=== PATIENT | male | born 1955 | race Caucasian/White ===

== ENCOUNTER 2017-12-22 10:19 | Inpatient (IN) | payer OTHER ==
[~2017-12-22] VITALS: Ht 175.3 cm; Wt 68.0 kg
[2017-12-22 10:26] VITALS: BP 126/88
[2017-12-22] MEDS ORDERED: QUETIAPINE FUM100 MG PO ×2 (10:30→13:57)
[2017-12-22 10:38] LABS: ABSOLUTE MONOCYTES 1.4 thou/uL (0.0-1.2); ABSOLUTE NEUTROPHILS 8.2 thou/uL (1.6-8.1); BASOPHILS 0.3 %; HEMATOCRIT 48.7 % (42.0-52.0); HEMOGLOBIN 16.4 gm/dL (14.0-18.0); LYMPHOCYTES 16.9 %; MCH 26.9 pg (26.0-34.0); MCHC 33.6 g/dL (28.0-37.0); MCV 80.1 fL (80.0-100.0); MONOCYTES 12.2 %; MPV 7.3 fl. (7.2-11.1); NUCLEATED RBCS 0 /100WBC; PLATELET COUNT* 492 thou/uL (150-400); POLYS 70.6 %; RBC 6.08 mil/uL (4.50-6.00); RDW-CV 17.3 % (10.5-14.5); WBC 11.7 thou/uL (4.0-11.0)
[2017-12-22 10:48] LABS: CALCIUM 9.9 mg/dL (8.5-10.1); CREATININE 1.6 mg/dL (0.6-1.3)
[2017-12-22 10:59] LABS: TOTAL BILIRUBIN 0.9 mg/dL (<0.1-1.0); TOTAL PROTEIN 9.9 g/dL (6.4-8.2)
[2017-12-22 13:18] VITALS: BP 115/85
[2017-12-22 13:40] VITALS: BP 133/76
[2017-12-22] MEDS ORDERED: HYDROXYZINE PAM50 MG PO (13:58)
[2017-12-22] MEDS ORDERED: PRAZOSIN HCL5 MG PO (13:58)
[2017-12-22] MEDS ORDERED: SENNA-DOCUSATE1 EAC1 PO (14:03)
[2017-12-22] MEDS ORDERED: MIRATAZAPINE PO (14:04)
[2017-12-22 15:33] VITALS: BP 119/78
--- NOTE | 2017-12-22 17:31 | NUR ---
PATIENT ADMITTED TO ROOM 305 THIS AFTERNOON FROM ER. ALERT AND ORIENTED X 4. IVF INFUSING ORDERED. CLEAR LIQUID DIET, PATIENT TOLERATING. GI CONS PLACED AND HERE TO SEE THIS AFTERNOON. ORDERS FOR NPO AFTER MIDNIGHT FOR ABD US FIRST THEN EGD TO FOLLOW. PATIENT AWARE AND VERBALIZES UNDERSTANDING. PATIENT RATING ABD PAIN A 9/10, PRN FENTANYL GIVEN. PATIENT RATING PAIN A 4/10 30 MINUTES AFTER GIVEN. PATIENT THEN CALLING OUT AGAIN STATING HE WAS NEEDING PAIN MEDICATION. PATIENT MADE AWARE OF WHEN PAIN MEDICATIONS ARE DUE, PATIENT OBSERVED LYING CALMLEY IN BED AT THAT TIME. FALL RISK PROTOCOL IN PLACE. PATIENT BLADDER SCANNED THIS AFTERNOON AND 397MLS NOTED IN BLADDER. PATIENT THEN VOIDING 175MLS DARK CJ URINE IN URINAL. WILL CONTINUE TO MONITOR.
--- NOTE | 2017-12-22 17:44 | EKG ---
[place] [address] ELECTROCARDIOGRAM REPORT Name: CAITLYN JORDAN Room: [address] ADM IN M.R.#: [id number] Admission: 12/22/17 Attend Phys: Rajan Salinas MD Discharge: Date of : 55 Report #: [id number] THIS REPORT FOR: //name// [facility] Test Date: 2017-12-22 Test Time: 16:44:05 Pat Name: CAITLYN JORDAN Department: Room: [address] Gender: M Rhinestone Setter: [facility] : 1955 Requested By: Ernie Ramsay Order Number: [id number] Martina MD: Isreal Miner Measurements Intervals [place] Rate: 68 P: 68 [place]: 124 QRS: 77 QRSD: 98 T: 61 QT: 428 QTc: 456 Interpretive Statements Sinus rhythm Compared to ECG 01/25/2010 14:53:23 No significant changes Electronically Signed On 12-22-2017 17:44:41 BRAND MANAGER by Isreal Miner [email or web address] <ELECTRONICALLY SIGNED> By: Isreal Miner MD, [facility] 12/22/17 1744 43 43 Isreal Miner MD, FACC /EPI
--- NOTE | 2017-12-23 06:51 | NUR ---
PATIENT SLEPT MOST OF THE NIGHT. IV FLUIDS ARE INFUSING ORDERED. PATIENT WAS GIVEN PAIN MEDICINE ABOUT EVERY 4 HOURS. PATIENT IS NPO FOR AN EGD TODAY. WILL CONTINUE TO MONITOR.
[2017-12-23 08:21] VITALS: BP 108/73
--- NOTE | 2017-12-23 08:30 | NUR ---
INITIAL ASSESSMENT COMPLETED, VSS, ABD US COMPLETE, NO DISTRESS NOTED. CONSENT FOR SCOPE SIGNED, IV PATENT, COMPLIANT W/ CARES, PLAN OF CARE REVIEWED W/ PATIENT, DENIES QUESTIONS, CONT POC.
[2017-12-23 10:16] VITALS: BP 108/73
--- NOTE | 2017-12-23 10:48 | NUR ---
SW attempted to meet pt but he was off of the unit at this time. SW to continue to follow to assist with safe dc planning.
[2017-12-23 16:00] VITALS: BP 128/64
[2017-12-23 16:11] LABS: ABSOLUTE BASOPHILS 0.1 thou/uL (0.0-0.2); ABSOLUTE EOSINOPHILS 0.1 thou/uL (0.0-0.7); ABSOLUTE MONOCYTES 0.8 thou/uL (0.0-1.2); ABSOLUTE NEUTROPHILS 5.2 thou/uL (1.6-8.1); BASOPHILS 0.7 %; EOSINOPHILS 0.8 %; HEMATOCRIT 42.3 % (42.0-52.0); LYMPHOCYTES 24.9 %; MCH 27.1 pg (26.0-34.0); MCHC 32.6 g/dL (28.0-37.0); MCV 83.1 fL (80.0-100.0); MONOCYTES 10.1 %; MPV 7.3 fl. (7.2-11.1); NUCLEATED RBCS 0 /100WBC; POLYS 63.5 %; RDW-CV 17.2 % (10.5-14.5); WBC 8.2 thou/uL (4.0-11.0)
[2017-12-23 16:14] LABS: HEMOGLOBIN 13.8 gm/dL (14.0-18.0); PLATELET COUNT* 306 thou/uL (150-400)
[2017-12-23 16:34] LABS: ALBUMIN 3.4 g/dL (3.4-5.0); CALCIUM 8.3 mg/dL (8.5-10.1); CREATININE 1.3 mg/dL (0.6-1.3); POTASSIUM 3.5 mmol/L (3.5-5.1); TOTAL BILIRUBIN 0.4 mg/dL (<0.1-1.0); TOTAL PROTEIN 6.3 g/dL (6.4-8.2)
[2017-12-23 20:30] VITALS: BP 112/73
[2017-12-24] VITALS: BP 88/51
--- NOTE | 2017-12-24 05:30 | NUR ---
PT SLEPT MOST OF SHIFT. ASSESSMENT DOCUMENTED. MEDS GIVEN PER E-MAR. NEW IV STARTED THIS SHIFT. PAIN MEDS GIVEN PER E-MAR. PT REFUSED 4AM VITALS AND BLOOD DRAW STATING "I AM STILL ALIVE AND DON'T NEED TO BE CHECKED ON". PT REMAINED NPO AFTER MIDNIGHT. WILL CONTINUE WITH PLAN OF CARE.
[2017-12-24 08:00] VITALS: BP 120/70
[2017-12-24 08:16] LABS: ABSOLUTE MONOCYTES 0.4 thou/uL (0.0-1.2); HEMATOCRIT 38.5 % (42.0-52.0); MONOCYTES 8.4 %; MPV 7.2 fl. (7.2-11.1)
[2017-12-24 08:17] LABS: ABSOLUTE EOSINOPHILS 0.2 thou/uL (0.0-0.7); ABSOLUTE NEUTROPHILS 2.3 thou/uL (1.6-8.1); BASOPHILS 0.9 %; EOSINOPHILS 4.5 %; HEMOGLOBIN 12.5 gm/dL (14.0-18.0); LYMPHOCYTES 40.6 %; MCHC 32.5 g/dL (28.0-37.0); NUCLEATED RBCS 0 /100WBC; PLATELET COUNT* 246 thou/uL (150-400); POLYS 45.6 %; RBC 4.65 mil/uL (4.50-6.00)
[2017-12-24 08:39] LABS: ALBUMIN 3.2 g/dL (3.4-5.0); CALCIUM 8.4 mg/dL (8.5-10.1); CREATININE 1.2 mg/dL (0.6-1.3); POTASSIUM 3.7 mmol/L (3.5-5.1); TOTAL BILIRUBIN 0.5 mg/dL (<0.1-1.0); TOTAL PROTEIN 6.2 g/dL (6.4-8.2)
[2017-12-24 09:55] VITALS: BP 120/70
--- NOTE | 2017-12-24 10:30 | NUR ---
DISCHARGE NOTE - PT DC'ED AT THIS TIME. REVIEWED DISCHARGE INSTRUCTIONS WITH PT AND NO QUESTIONS. ALL BELONGINGS SENT WITH PT. IV REMOVED S DIFFICULTY.
--- NOTE | 2018-01-03 17:35 | CON ---
[address] [address] CONSULTATION Name: CAITLYN JORDAN Room: [address] IN M.R.#: [id number] Admission: 12/22/17 Attend Phys: Rajan Salinas MD Discharge: 12/24/17 Date of : 55 Report #: [id number] THIS REPORT FOR: //name// CC: Rajan Salinas FAM unknown [facility] DATE OF SERVICE: 12/22/2017 REFERRING PHYSICIAN: Rajan Salinas MD REASON FOR CONSULTATION: Abdominal pain. IMPRESSION: 1. Periumbilical pain of uncertain etiology. 2. Status post recent esophageal resection with primary anastomosis for recurrent esophageal stricture (at the [facility] in February of this year). 3. Dehydration secondary to poor oral intake. 4. History of left kidney resection for cancer. 4. Posttraumatic stress disorder/depression/anxiety. RECOMMENDATIONS: 1. I agree with the patient being admitted for IV fluids, pain medications and antiemetics. 2. Proceed with an abdominal ultrasound and upper endoscopy tomorrow. 3. We will request records from the [facility] from this year for review. 4. I have discussed the plan with the patient as well and he is agreeable to the same. HISTORY OF PRESENT ILLNESS: The patient is a 62-year-old white male who has a problem with diffuse abdominal pain that has mostly been in the periumbilical area. He also has problem with nausea and vomiting. He has had similar problems in the past and it is unclear what is going on with the same. He has a history of recurrent esophageal strictures and eventually underwent surgical resection of his distal esophagus and primary anastomosis of the same at the [facility] earlier this year and has done well since that time. He has had some nausea and vomiting without hematemesis or melena. His weight has been stable. His pain is mostly in the periumbilical area. He is admitted to the hospital for evaluation and treatment. ALLERGIES: PENICILLIN. MEDICATIONS: Include Seroquel. He also takes prazosin [place] [address] CONSULTATION Name: CAITLYN JORDAN Room: [address]#: [id number] Admission: 12/22/17 Attend Phys: Rajan Salinas MD Discharge: 12/24/17 Date of : 55 Report #: [id number] PAST MEDICAL AND SURGICAL HISTORY: Remarkable for posttraumatic stress disorder, anxiety and depression. He has had previous kidney removed from the left side because of cancer. He has also had esophageal strictures dilated multiple times (44 by his report) for eventual surgical resection of his esophagus including anastomosis at the [facility] earlier this year. SOCIAL HISTORY: The patient does not smoke or drink. FAMILY HISTORY: Negative. PHYSICAL EXAMINATION: GENERAL: Pleasant 62-year-old gentleman, who appears older than stated age. CARDIOPULMONARY EXAMINATION: Revealed a regular rate and rhythm. LUNGS: Clear. ABDOMEN: Soft. He is mildly tender in the periumbilical area. No rebound or guarding noted. LABORATORY DATA: Revealed a white count of 11.7, hemoglobin 16.4, platelet count 492,000. MCV____. His sodium 131, potassium 3.0, chloride was 88, bicarbonate 26, BUN is 27, creatinine 1.6. His bilirubin is 0.9, alkaline phosphatase 167, AST is 30 and ALT 24. His albumin is 5.0. CT scan was reviewed and revealed postsurgical changes. These suggest that these are hiatal hernia, but it is mostly because of his surgical intervention. His left kidney is removed. He had few low density lesions scattered throughout the liver measuring less than 6 mm, which were too small to characterize with no ductal dilation. Gallbladder appears normal, spleen is normal and pancreas is also normal. DISCUSSION: At the present time, the patient has problem with abdominal periumbilical pain, nausea and vomiting. We will proceed with upper endoscopy and abdominal ultrasound tomorrow to make further recommendations thereafter. <ELECTRONICALLY SIGNED> By: Ernie Ramsay DO 01/03/18 1735 1639 [id number] Ramsay DO /nt
== END 2017-12-24 10:30 | disposition home or self-care (01) | DRG 683 ==
LOC: M.ERS 10:19 → M.TBA-ER 12:52 → M.3W 12:52
PROVIDERS: Internal Medicine Gastroenterology; Physician Assistant; ADMIT Internal Medicine
PROC: 0DJ08ZZ Inspection of Upper Intestinal Tract, Via Natural or Artificial Opening Endoscopic (ICD-10-PCS; principal; 2017-12-23)
DX: N17.9 Acute kidney failure, unspecified (principal); E87.1 Hypo-osmolality and hyponatremia; E87.2 Acidosis; R65.10 Systemic inflammatory response syndrome (SIRS) of non-infectious origin without acute organ dysfunction; E86.0 Dehydration; R10.9 Unspecified abdominal pain; E87.6 Hypokalemia; G89.29 Other chronic pain; K21.9 Gastro-esophageal reflux disease without esophagitis; K44.9 Diaphragmatic hernia without obstruction or gangrene; F41.0 Panic disorder [episodic paroxysmal anxiety]; F32.9 Major depressive disorder, single episode, unspecified; F43.10 Post-traumatic stress disorder, unspecified; K63.89 Other specified diseases of intestine; Z88.0 Allergy status to penicillin; Z79.899 Other long term (current) drug therapy

== ENCOUNTER 2019-04-27 12:01 | Inpatient (IN) | payer OTHER ==
[~2019-04-27] VITALS: Ht 185.4 cm; Wt 63.5 kg
--- NOTE | ~2019-04-27 | CON ---
[address] [address] CONSULTATION Name: NIKKICAITLYN Lilo Room: [address] IN M.R.#: [id number] Admission: 04/27/19 Attend Phys: Evelyn Perrin Discharge: Date of : 55 Report #: [id number] THIS REPORT FOR: //name// cc: [facility] physician unknown [facility] physician unknown ~ THIS REPORT FOR: //name// CC: KAMARI unknown Earl Woodruff HISTORY OF PRESENT ILLNESS: This is a pleasant 63-year-old gentleman with past medical history significant for esophageal adenocarcinoma, status post esophagectomy and gastric pull-up. The patient is usually seen at [facility], presented here for exacerbation of chronic abdominal pain. The patient reports the pain is located in the mid abdominal area. It has been there for the last several years. The patient denies any specific aggravating or alleviating factors. Reports the pain is sharp, localized and nonradiating. The last time the pain lasted for more than 24 hours, which prompted his ER visit. He denies any fevers, chills, nausea, vomiting, diarrhea or weight loss. The patient reports that initially following his esophagectomy, he had lost about 80 pounds and since then has gained about 40 pounds. This happened about a year and half back. PAST MEDICAL HISTORY: The patient also reports history of renal cell cancer with a nephrectomy. PAST SURGICAL HISTORY: Nephrectomy and esophagectomy with gastric pull-up. SOCIAL HISTORY: The patient quit smoking in the past. Denies alcohol or recreational drug use. FAMILY HISTORY: No family history of colon cancer or [place] related neoplasia. REVIEW OF SYSTEMS: A comprehensive 10-point review of systems is negative except for what was mentioned in HPI. PHYSICAL EXAMINATION: VITAL SIGNS: Temperature 97.4, pulse rate 73, blood pressure 111/72, respirations 14, pulse ox 98%. GENERAL: The patient is alert, awake, oriented x 3. HEENT: Pupils are equal, round, reactive to light and accommodation. Mucous membranes are moist. There is no congestion. LUNGS: Clear to auscultation bilaterally. CARDIOVASCULAR: Rate and rhythm regular, S1, S2 present. ABDOMEN: Soft. There is no distention, guarding or rigidity. EXTREMITIES: Warm, well perfused. There is no edema. SKIN: [place] [address] CONSULTATION Name: CAITLYN JORDAN Room: [address] [place] [facility]#: [id number] Admission: 04/27/19 Attend Phys: Evelyn Perrin Discharge: Date of : 55 Report #: [id number] LABORATORY DATA: Hemoglobin 13.9, hematocrit 39.9, platelet count 230, WBC count 6.1. Sodium 138, potassium 3.1, chloride 102, bicarbonate 27, BUN 15, creatinine 1.1, total bilirubin 0.7, AST 30, ALT 25, alkaline phosphatase 88. IMAGING: CT abdomen and pelvis, moderate sized hiatal hernia containing fluid. There is thickening of the mucosa with diaphragmatic hiatal hernia. Endoscopic evaluation should be considered to exclude mucosal malignancy. ASSESSMENT AND PLAN: Pleasant 63-year-old male with a history of esophageal adenocarcinoma, status post gastric pull-up presenting for evaluation of abdominal pain. The pain appears to have resolved at this time. The patient does appear to have gastric pull-up with a hiatus hernia present on CT scan. The patient reports his last EGD was done a few months back at [facility]. We will obtain records of these. Plan for EGD on Wednesday. Thank you very much for this consultation. By: 1704 0014Lb Stack MD /nt
[~2019-04-27 12:01] MED LIST: HYDROXYZINE PAM50 MG PO; MIRATAZAPINE PO; PRAZOSIN HCL5 MG PO; QUETIAPINE FUM100 MG PO; SENNA-DOCUSATE1 EAC1 PO
[2019-04-27 12:09] VITALS: BP 124/80
[2019-04-27 12:48] LABS: ABSOLUTE LYMPHOCYTES 1.5 thou/uL (0.8-5.3); ABSOLUTE NEUTROPHILS 8.5 thou/uL (1.6-8.1); BASOPHILS 0.1 %; HEMATOCRIT 44.7 % (42.0-52.0); HEMOGLOBIN 15.6 gm/dL (14.0-18.0); LYMPHOCYTES 13.7 %; MCH 30.4 pg (26.0-34.0); MCHC 34.8 g/dL (28.0-37.0); MCV 87.2 fL (80.0-100.0); MONOCYTES 9.1 %; MPV 7.5 fl. (7.2-11.1); NUCLEATED RBCS 0 /100WBC; PLATELET COUNT* 342 thou/uL (150-400); POLYS 77.1 %; RBC 5.13 mil/uL (4.50-6.00); RDW-CV 15.4 % (10.5-14.5); WBC 11.1 thou/uL (4.0-11.0)
[2019-04-27 12:58] LABS: CALCIUM 9.4 mg/dL (8.5-10.1); CREATININE 1.2 mg/dL (0.6-1.3); POTASSIUM 3.5 mmol/L (3.5-5.1)
[2019-04-27 13:03] LABS: ALBUMIN 4.9 g/dL (3.4-5.0); TOTAL BILIRUBIN 0.8 mg/dL (<0.1-1.0); TOTAL PROTEIN 8.9 g/dL (6.4-8.2)
[2019-04-27 14:16] LABS: URINE BLOOD 2+ (Negative); URINE CLARITY CLEAR; URINE COLOR YELLOW; URINE GLUCOSE-RANDOM NEGATIVE (Negative); URINE KETONES 2+ (Negative); URINE LEUKOCYTES-REFLEX NEGATIVE (Negative); URINE NITRITE-REFLEX NEGATIVE (Negative); URINE PROTEIN 1+ (Negative); URINE SPECIFIC GRAVITY >= 1.030 (1.005-1.030); URINE UROBILINOGEN 0.2 E.U./dl (0.2-1.0)
[2019-04-27 14:37] LABS: ICTOTEST (BILI CONFIRMATORY) Negative (Negative); URINE BILIRUBIN 1+ (Negative)
[2019-04-27 14:43] LABS: SQUAMOUS 0-3 Few /LPF (0-3); URINE RBC 0-2 Rare /HPF (0-2); URINE WBC-REFLEX 6-15 Few /HPF (0-5)
[2019-04-27 14:44] LABS: CASTS None Seen /LPF (None Seen); CRYSTALS None Seen /LPF (None Seen)
[2019-04-27 16:48] LABS: ALCOHOL < 10 mg/dL (<10)
[2019-04-27 16:50] LABS: ACETAMINOPHEN < 2 ug/mL (10-30)
[2019-04-27 17:35] VITALS: BP 114/71
[2019-04-27 18:31] VITALS: BP 110/61
[2019-04-27 20:00] VITALS: BP 116/81
--- NOTE | 2019-04-28 06:07 | NUR ---
At start of shift he seemed to oriented x 3 but drowsy and impulsive. He set off the bedalarm a few times. At around 0130 he woke up and wanted his home meds,then after they were ordered he wanted fentanyl for pain. I had to send out a second message for the fentanyl order. He was very upset that it wasn't able to be immediately given. I explained that it took a little time to get the order then for the pharmacy to get the orders in the computer,he was not happy. But he did finally accept that. He wanted to be left alone and sleep after meds were given.
[2019-04-28 07:20] VITALS: BP 99/52
--- NOTE | 2019-04-28 10:33 | EKG ---
[place] [address] ELECTROCARDIOGRAM REPORT Name: CAITLYN JORDAN Room: [address] ADM IN .R.#: [id number] Admission: 04/27/19 Attend Phys: Earl Woodruff Discharge: Date of : 55 Date of Service: 04/27/19 1249 Report #: [id number] THIS REPORT FOR: //name// [facility] ED Test Date: 2019-04-27 Test Time: 12:49:29 Pat Name: CAITLYN JORDAN Department: Room: [facility] Gender: M Skin Specialist: KF : 1955 Requested By: Kat Gonzáles Order Number: [id number] MD: Isreal Miner Measurements Intervals [place] Rate: 74 P: 91 FL: 122 QRS: 99 QRSD: 101 T: 87 QT: 427 QTc: 474 Interpretive Statements Sinus rhythm Inferior infarct, acute (RCA) Probable RV involvement, suggest recording right precordial leads Compared to ECG 12/22/2017 16:44:05 Myocardial infarct finding now present Electronically Signed On 04-28-2019 10:32:41 CDT by Isreal Miner [email or web address] <ELECTRONICALLY SIGNED> By: Isreal Miner MD, FACC 04/28/19 1032 1249 1249 Isreal Miner MD, FAC /EPI
--- NOTE | 2019-04-28 10:34 | EKG ---
[place] [address] ELECTROCARDIOGRAM REPORT Name: CAITLYN JORDAN Room: [address] ADM IN .R.#: [id number] Admission: 04/27/19 Attend Phys: Earl Woodruff Discharge: Date of : 55 Date of Service: 04/27/19 1259 Report #: [id number] THIS REPORT FOR: //name// [facility] ED Test Date: 2019-04-27 Test Time: 12:59:42 Pat Name: CAITLYN JORDAN Department: Room: [address] Gender: M Subassemblies Wirer: KF : 1955 Requested By: Earl Woodruff Order Number: [id number] Martina MD: Isreal Miner Measurements Intervals [place] Rate: 70 P: 37 CT: 122 QRS: 82 QRSD: 97 T: 78 QT: 429 QTc: 463 Interpretive Statements Sinus rhythm Borderline right axis deviation Electronically Signed On 04-28-2019 10:33:02 CDT by Isreal Miner [email or web address] <ELECTRONICALLY SIGNED> By: Isreal Miner MD, [facility] 04/28/19 1033 1259 1259 Isreal Miner MD, FACC /EPI
--- NOTE | 2019-04-28 11:41 | NUR ---
Nutrition: Pt admitted with abd pain. Consult received for "hx esophageal strictures." Pt has had esoph stretching multiple times. He stated today that he does fine with regular foods. Currently, he is on CLD. He agreed to try Ensure Vanilla - RD will order BID for when diet advances past clears. He stated his usual wt is 140#. Albumin is 4.9. No other nutrition interventions needed at this time. Mild risk.
[2019-04-28 15:09] LABS: ABSOLUTE LYMPHOCYTES 2.3 thou/uL (0.8-5.3); ABSOLUTE MONOCYTES 0.8 thou/uL (0.0-1.2); BASOPHILS 0.3 %; EOSINOPHILS 0.3 %; HEMATOCRIT 39.9 % (42.0-52.0); HEMOGLOBIN 13.9 gm/dL (14.0-18.0); LYMPHOCYTES 38.1 %; MCH 30.5 pg (26.0-34.0); MCHC 34.7 g/dL (28.0-37.0); MCV 87.7 fL (80.0-100.0); MONOCYTES 12.4 %; NUCLEATED RBCS 0 /100WBC; PLATELET COUNT* 230 thou/uL (150-400); POLYS 48.9 %; RBC 4.55 mil/uL (4.50-6.00); RDW-CV 15.4 % (10.5-14.5); WBC 6.1 thou/uL (4.0-11.0)
[2019-04-28 15:22] LABS: ALBUMIN 3.4 g/dL (3.4-5.0); CALCIUM 8.2 mg/dL (8.5-10.1); CREATININE 1.1 mg/dL (0.6-1.3); POTASSIUM 3.1 mmol/L (3.5-5.1); TOTAL BILIRUBIN 0.7 mg/dL (<0.1-1.0); TOTAL PROTEIN 6.5 g/dL (6.4-8.2)
[2019-04-28 15:45] VITALS: BP 111/72
--- NOTE | 2019-04-28 16:42 | NUR ---
PT REMAINED ALERT AND ORIENTED. PT STANDBY WITH GAIT BELT TO BATHROOM. PT REFUSES TO USE WALKER. PT A BIT UNSTEADY AND STATED HAS FALLEN AT HOME BEFORE. BRUISE NOTED ON BACK, PICTURE TAKEN ON ADMISSION, NO CHANGES NOTED. PAIN MEDS GIVEN ORDERED. [facility]. GI SAW PATIENT HOWEVER NO NOTE CREATED FROM GI AT THIS TIME. FALL RISK PRECAUTIONS IN PLACE. HOURLY ROUNDING COMPLETED. WILL CONTINUE TO MONITOR.
[2019-04-28 20:12] VITALS: BP 108/77
--- NOTE | 2019-04-29 04:20 | NUR ---
ASSUMED CARE OF PT 04/28/19 AT APPROX 1930. PT A&OX4, PT ON ROOM AIR, VSS. ASSESSMENTS AND HOURLY ROUNDINGS COMPLETED. WILL CONTINUE TO MONITOR.
[2019-04-29 09:00] VITALS: BP 109/65
[2019-04-29 11:49] LABS: ABSOLUTE LYMPHOCYTES 1.5 thou/uL (0.8-5.3); ABSOLUTE MONOCYTES 0.5 thou/uL (0.0-1.2); ABSOLUTE NEUTROPHILS 2.7 thou/uL (1.6-8.1); BASOPHILS 0.9 %; EOSINOPHILS 0.9 %; HEMATOCRIT 33.6 % (42.0-52.0); LYMPHOCYTES 32.2 %; MCH 30.2 pg (26.0-34.0); MCV 88.9 fL (80.0-100.0); MPV 7.3 fl. (7.2-11.1); NUCLEATED RBCS 0 /100WBC; PLATELET COUNT* 182 thou/uL (150-400); RBC 3.78 mil/uL (4.50-6.00); RDW-CV 15.4 % (10.5-14.5); WBC 4.7 thou/uL (4.0-11.0)
[2019-04-29 11:56] LABS: HEMOGLOBIN 11.4 gm/dL (14.0-18.0)
[2019-04-29 11:58] LABS: ALBUMIN 2.9 g/dL (3.4-5.0); CALCIUM 7.5 mg/dL (8.5-10.1); CREATININE 1.1 mg/dL (0.6-1.3); POTASSIUM 3.7 mmol/L (3.5-5.1); TOTAL BILIRUBIN 0.4 mg/dL (<0.1-1.0); TOTAL PROTEIN 5.7 g/dL (6.4-8.2)
[2019-04-29 16:14] VITALS: BP 104/79
--- NOTE | 2019-04-29 16:30 | NUR ---
I ASSUMED CARE OF THE PATIENT AT 0700. HE IS ALERT AND ORIENTED X4 AND IS UP WITH ASSIST OF ONE. BED IS IN THE LOW LOCKED POSITION AND CALL LIGHT IS IN REACH. HOURLY ROUNDING IS COMPLETED AND PATIENT NEEDS ARE MET. PAIN IS MANAGED WITH PRN MEDS. MEDS WERE ADJUSTED AND LABS WERE DRAWN BY THE NURSE. WE ARE STILL WAITING ON [facility] REC[facility]DS [facility] THE [facility]. GI IS OKAY WITH SEEING THE PATIENT OUTPATIENT AND SIGNING OFF IF THERE HAS BEEN AN EDG IN THE LAST 6 MONTHS. WILL CONTINUE TO MONITOR.
--- NOTE | 2019-04-29 17:30 | NUR ---
ASSUMED CARE OF PATIENT AT THIS TIME. PATIENT IS UP IN CHAIR. PATIENT IS UP STANDBY ASSIST. CALL LIGHT WITHIN REACH.
[2019-04-30 07:45] VITALS: BP 111/74
--- NOTE | 2019-04-30 09:19 | NUR ---
PATIENT HAS BEEN RESTLESS MOST OF THE NIGHT. VSS ON RA. PATTIENT UP AD-PRANAV IN ROOM. MEDICATIONS GIVEN ORDERED AND CHARTED. ASSESSMENT CHARTED. IV IN RIGHT FOREARM-SL. IV ABT GIVEN WITHOUT ANY ADVERSE SIDE EFFECTS NOTED. PATIENT INSTRUCTED TO USE CALL LIGHT WHEN NEEDING ASSISTANCE. HOURLY ROUNDS MADE. WILL CONTINUE WITH PLAN OF CARE AND NURSING TO MONITOR.
[2019-04-30 15:00] VITALS: BP 105/70
--- NOTE | 2019-04-30 17:58 | NUR ---
PATIENT RESTING IN BED. PATIENT DENIES ANY PAIN. PATIENT HAS COMPLAINTS OF NAUSEA WITH SMALL AMOUNT OF COFFEE GROUN EMESIS. PATIENT ALSO HAD SMALL BLACK TARRY STOOL. PATIENT IS SCHEDULED FOR EGD IN THE AM. PATIENT IS TOLERATING CLEAR LIQUIDS. WOUND VAC TO RIGHT LOWER EXTREMITY IN PLACE AND RUNNING. PATIENT DENIES ANY NEEDS AT THIS TIME.
--- NOTE | 2019-04-30 18:05 | NUR ---
PATIENT UP IN CHAIR. PATIENT HAS BEEN UP AD PRANAV IN ROOM AND WALKED HALLS. PATIENT HAS COMPLAINTS OF ABDOMINAL PAIN BUT HAS REFUSED NORCO AND OXY THIS AFTERNOON AND EVENING, TYLENOL GIVEN PER REQUEST. PATIENT HAS GOOD APPETITE. PATIENT DENIES ANY NEEDS AT THIS TIME. CALL LIGHT WITHIN REACH.
[2019-04-30 21:20] VITALS: BP 107/59
--- NOTE | 2019-05-01 06:20 | NUR ---
PATIENT HAS SLEPT WELL THROUGHOUT MOST OF THE NIGHT. VSS ON RA. MEDICATIONS GIVEN ORDERED AND CHARTED. PATIENT UP AD-PRANAV. IV IN RIGHT FOREARM-SL. IV ABT GIVEN WITHOUT ANY ADVERSE SIDE EFFECTS NOTED. PATIENT INSTRUCTED TO USE CALL LIGHT WHEN NEEDING ASSISTANCE. HOURLY ROUNDS MADE. WILL CONTINUE WITH PLAN OF CARE AND NURSING TO MONITOR.
--- NOTE | 2019-05-01 07:01 | CON ---
[address] [address] CONSULTATION Name: CAITLYN JORDAN Room: [address] IN M.R.#: [id number] Admission: 04/27/19 Attend Phys: Evelyn Perrin Discharge: Date of : 55 Report #: [id number] THIS REPORT FOR: //name// cc: [facility] physician unknown [facility] physician unknown ~ THIS REPORT FOR: //name// CC: [facility] unknown Earl Woodruff DATE OF SERVICE: 04/30/2019 INFECTIOUS DISEASE CONSULTATION ATTENDING PHYSICIAN: Earl Woodruff MD REASON FOR EVALUATION: Positive blood culture with Gram-positive jania, 1 out of 2. HISTORY OF PRESENT ILLNESS: Chart reviewed, the patient examined. This is a 63-year-old gentleman with a known history of esophageal disease requiring dilatations multiple occasions. His care is obtained through the [facility]. He developed abdominal pain at the umbilical area over the night prior to his admission, not clear if he has had nausea or emesis. He has had poor p.o. intake. Denied any fever or chills. No pulmonary-related complaints. At this time of the admission, he was evaluated including blood cultures now 1 out of 2 positive for gram-positive rods. Additional noted to have a borderline elevated white count of 11.1, mildly elevated AST. Lactic acid of 2.1. Urinalysis 6-[address] abdomen and pelvis showed a hiatal hernia, no evidence of bowel obstruction, no evidence of fluid collection or abscesses. At this point, the pain is actually better. He denies any particular other confounding signs or symptoms. He has been empirically started on therapy with metronidazole and levofloxacin. ALLERGIES: PENICILLINS. CURRENT MEDICATIONS: Include oxycodone, prazosin, metronidazole, levofloxacin, senna, hydrocodone, mirtazapine, quetiapine, pantoprazole. PAST MEDICAL HISTORY: Includes known esophageal dysfunction, history of left nephrectomy, PTSD. SOCIAL HISTORY: Former smoker. No ethanol. No illicit drug use. FAMILY HISTORY: [place] [address] CONSULTATION Name: CAITLYN JORDAN Room: [address] IN [facility]#: [id number] Admission: 04/27/19 Attend Phys: Evelyn Perrin Discharge: Date of : 55 Report #: [id number] REVIEW OF SYSTEMS: Otherwise, unremarkable 10-point review of systems with exception of the above. PHYSICAL EXAMINATION: GENERAL: He appears somewhat chronically ill. He is pleasant, cooperative. He is mildly anxious, slightly encephalopathic. VITAL SIGNS: Temperature 97.6, pulse 77, respirations 18, blood pressure 104/79. HEENT: Normocephalic. Extraocular muscles intact. NECK: Supple. LUNGS: Diminished breath sounds overall. HEART: Regular. I do not appreciate murmur. ABDOMEN: Not tender to light percussion or palpation. There are no peritoneal signs. GENITOURINARY: Deferred. RECTAL: Deferred. LABORATORY DATA: Blood cultures described above, 1 out 2 with Gram-positive jania. Lactic acid now 1.1 most recently. Electrolytes: Sodium 141, potassium 3.7, chloride 108, bicarb is 26, BUN and creatinine 15 and 1.1. Albumin 2.9, total protein now 5.7. LFTs unremarkable. Estimated GFR 68. CBC: White count 4.7, H and H 11.4, platelets of 182. Differential unremarkable. His lymphocyte count of 1500. Urine culture pending. ASSESSMENT AND PLAN: Positive blood culture with Gram-positive rods. He is on combination therapy primarily for his abdominal issues yet to be defined, noted possible pending EGD. We will continue current approach as prescribed. I suspect in all likelihood, this is a contaminant noted. Repeat blood cultures are pending as well. We will monitor expectantly. Certainly, denies any new signs or symptoms that he may report or experience. <ELECTRONICALLY SIGNED> By: Devonte Alonso MD 05/01/19 0701 0944 1522Jojuan Alonso MD /nt
[2019-05-01 07:15] LABS: ALBUMIN 1.9 g/dL (3.4-5.0); CALCIUM 8.7 mg/dL (8.5-10.1); CREATININE 1.3 mg/dL (0.6-1.3); POTASSIUM 4.7 mmol/L (3.5-5.1); TOTAL BILIRUBIN 0.1 mg/dL (<0.1-1.0); TOTAL PROTEIN 6.2 g/dL (6.4-8.2)
[2019-05-01 07:30] VITALS: BP 106/64
[2019-05-01 08:37] LABS: HEMATOCRIT 38.5 % (42.0-52.0); HEMOGLOBIN 13.1 gm/dL (14.0-18.0); MCH 30.1 pg (26.0-34.0); MCHC 34.1 g/dL (28.0-37.0); MCV 88.3 fL (80.0-100.0); MPV 6.9 fl. (7.2-11.1); RBC 4.36 mil/uL (4.50-6.00); RDW-CV 15.1 % (10.5-14.5); WBC 5.2 thou/uL (4.0-11.0)
[2019-05-01 09:32] VITALS: BP 107/59
--- NOTE | 2019-05-01 10:16 | NUR ---
PATIENT DISCHARGED TO HOME. PATIENT REFUSED TO HAVE EGD TODAY AND DR. HANNON NOTIFIED. DR. BENSON NOTIFIED THAT PATIENT STATING HE IS LEAVING AFTER BREAKFAST. DISCHARGE OBTAINED. IV DC'D. UP AD PRANAV. VERBALIZES UNDERSTANDING OF PAPERWORK., NO SCRIPTS. PATIENT WAS SEEN BY ID, NO ABX ORDERED. PATIENT TAKEN OUT VIA WHEELCHAIR WITH ALL BELONGINGS.
== END 2019-05-01 09:45 | disposition home or self-care (01) | DRG 947 ==
LOC: M.ERS 12:01 → M.ORTHSURG 16:52 → M.TBA-ER 16:52 → M.ORTHSURG 17:51 → M.3W 04-29 15:07
PROVIDERS: Internal Medicine; Personal Emergency Response Attendant; ADMIT Internal Medicine
DX: G89.18 Other acute postprocedural pain (principal); E43 Unspecified severe protein-calorie malnutrition; Z68.1 Body mass index [BMI] 19.9 or less, adult; E87.1 Hypo-osmolality and hyponatremia; K44.9 Diaphragmatic hernia without obstruction or gangrene; I71.4 Abdominal aortic aneurysm, without rupture; G89.29 Other chronic pain; F43.10 Post-traumatic stress disorder, unspecified; E87.8 Other disorders of electrolyte and fluid balance, not elsewhere classified; E87.6 Hypokalemia; Z79.899 Other long term (current) drug therapy; Z88.0 Allergy status to penicillin; Z85.01 Personal history of malignant neoplasm of esophagus; Z85.53 Personal history of malignant neoplasm of renal pelvis; Z83.3 Family history of diabetes mellitus; Z82.49 Family history of ischemic heart disease and other diseases of the circulatory system; Z87.891 Personal history of nicotine dependence; Z90.5 Acquired absence of kidney